=== PATIENT | female | born 1995 | race Caucasian/White ===

== ENCOUNTER 2017-10-08 17:54 | Emergency (ER) | payer BC, SELFPAY ==
[2017-10-08 17:58] VITALS: BP 121/76; PULSE 101; RESP 18; TEMP 36.6; O2SAT 98
--- NOTE | 2017-10-08 18:22 | ED.GENADUL_ITS ---
Disposition Clinical Impression: Nausea & vomiting, Vaginal discharge Disposition: HOME Condition: Fair Instructions: Acute Nausea and Vomiting (ED) Additional Instructions: Continue to encourage hydration. Zofran as prescribed to help with nausea. I have asked our customer care representative to help facilitate follow up with primary care. Please also follow [facility] with [facility] for [facility]. Testing here today was normal. We will contact you with any out standing positive test results, it will take 5 business days to get these results back. If you develop increased abdominal pain, fevers/chills, inability to hydrate or other new/worsening symptoms please seek care urgently once again. Prescriptions: Ondansetron ODT [Zofran Odt] 4 mg PO TID PRN #12 tabef PRN Reason: Nausea Referrals: Primary Care Provider [Outside] Medical Decision Making - Lab Data Laboratory Tests 10/08/17 10/08/17 10/08/17 18:05 18:25 18:25 WBC 9.05 RBC 4.52 Hgb 13.3 Hct 40.0 MCV 88.5 MCH 29.4 MCHC 33.3 RDW 12.4 Plt Count 274 MPV 10.0 Immature Gran % 0.2 Neutrophils % 63.9 Lymphocytes % 26.7 Monocytes % 7.3 Eosinophils % 1.7 Basophils % 0.2 Absolute Neutrophils 5.78 Absolute Lymphocytes 2.42 Absolute Monocytes 0.66 Absolute Eosinophils 0.15 Absolute Basophils 0.02 Sodium 139 Potassium 3.5 Chloride 103 Carbon Dioxide 31.4 Anion Gap 4.6 BUN 10 Creatinine 0.92 Estimated GFR/1.73 m2 >= 60.00 Glucose 85 Calcium 8.5 Magnesium 1.7 L Total Bilirubin 0.3 AST 24 ALT 37 Alkaline Phosphatase 99 Troponin I < 0.02 Total Protein 8.2 Albumin 4.0 Urine Color Yellow Urine Clarity Sl cloudy Urine pH 5.5 Ur Specific [place] >= 1.030 H Urine Protein Negative Urine Ketones Trace H Urine Blood Trace-intact H Urine Nitrite Negative Urine Bilirubin Negative Urine Urobilinogen 0.2 Ur Leukocyte Esterase Negative Urine RBC 3-5 H Urine WBC 0-2 Ur Epithelial Cells Many Urine Crystals Negative Urine Bacteria Few Urine Casts Negative Urine Mucus Heavy Ur Culture Indicated? No Urine Glucose Negative Results reviewed for labs ordered during visit: Yes - Medical Decision Making Patient presents today with chief complaint of nausea vomiting and diffuse abdominal discomfort. Describes abdominal discomfort as cramping. Pain does not radiate. Has not vomited today, last vomited last night. No fevers/chills. On exam, patient appears dehydrated. She is noted to be slightly tachycardic at 101. Afebrile, nontoxic appearing. Diffuse abdominal pain, worse in the RLQ and epigastric region. No peritoneal findings, pain seems to be minimal on exam. She is endorsing mild vaginal discharge. Has IUD in place. Will need to switch rooms to be able to preform a vaginal exam. She is endorsing nausea currently. Will hydrate the patient, obtain laboratory evaluation and preform vaginal exam. Patient will be given Zofran IV to help with nausea. At this time, hold off on imaging. Pain is fairly diffuse, overall her symptoms are improving, no exam findings to suggest surgical pathology is noted.. Do not feel that imaging is warranted at this time. UPT negative Vaginal exam preformed, please see physical exam. Yellow discharge noted. No cervical motion tenderness. Negative chandelier sign. No adenexal tenderness. IUD strings visualized. Labs without significant abnormality. No leukocytosis. Vag path screen pending. Patient reports that nausea has improved after IV Zofran. Currently receiving IV hydration. Ana Maria, Gardnerella and trichomonas were all negative. Discussed findings with the patient. She is feeling much improved after hydration and IV Zofran. I encouraged hydration. She will be prescribed ODT Zofran to help with nausea and vomiting. She does not have a local primary care , I have asked her care according to help facilitate follow-up with primary care. We discussed new/worsening symptoms when to seek care urgently once again. Regard to the vaginal discharge, the chlamydia and gonorrhea testing is still pending. Will contact her with any positive results. [facility] for all [facility]ologic needs, advised that she follow- up with them regarding her vaginal discharge. All of her questions and concerns were addressed and she is in agreement with this plan. History of Present Illness - General Chief complaint: Nausea/Vomit/Diar Time Seen by Provider: 10/08/17 17:59 Source: patient, RN notes reviewed Mode of arrival: ambulatory Limitations: no limitations - History of Present Illness Initial comments: Patient is a 22-year-old female, otherwise healthy, presenting today with chief complaint of nausea and vomiting. She is accompanied by significant other. She reports that symptoms began 3 days ago. Reports that symptoms overall have improved today. Has not vomited since last night. However, she has very poor p.o. intake today as well secondary to continued nausea. Denies any hematemesis. Denies any fevers or chills. Denies any change in bowel or bladder habits. Denies any dysuria. Patient is endorsing increased vaginal discharge. Reports that she often has a scant amount of vaginal discharge but that this is increased from her baseline. States it has been yellow. No foul odor. She denies any itching or dyspareunia. Reports that she has been having fairly diffuse abdominal discomfort. Nausea and abdominal discomfort is worse when she tries to eat. States that she has been able to have sips of water today. No previous abdominal surgeries. Patient has IUD in place. Reports she was tested for STD prior to IUD insertion one year ago, was found to be negative per her report. Current significant other is new sexual partner since being tested. - Related Data Iud 10/08/17 Ondansetron ODT [Zofran Odt] 4 mg PO TID PRN #12 tabef 10/08/17 Allergies Allergy/AdvReac Type Severity Reaction Status Date / Time Sulfa (Sulfonamide Allergy Unverified 10/08/17 18:04 Antibiotics) Review of Systems Constitutional: no symptoms reported Respiratory: no symptoms reported Cardiovascular: denies: chest pain Gastrointestinal: as per HPI Genitourinary: as per HPI Musculoskeletal: denies: back pain Skin: denies: rash, lesions Neurological: denies: headache Past Medical History - Past Medical History Medical history: no medical history Surgical history: no surgical history General Exam - General Limitations: no limitations General appearance: alert, in no apparent distress - Head Head exam: Present: atraumatic - Eye Eye exam: Present: normal apperance - ENT ENT exam: Present: mucous membranes dry - Respiratory Respiratory exam: Present: normal lung sounds bilaterally. Absent: respiratory distress - Cardiovascular Cardiovascular Exam: Present: regular rate, normal rhythm, normal heart sounds - GI/Abdominal GI/Abdominal exam: Present: soft, tenderness (diffuse tenderness, worse in the RLQ and epigastric area.), diminished bowel sounds. Absent: distended, guarding , rebound, rigid - Rectal Rectal exam: Present: deferred - External exam: Present: normal external exam. Absent: erythema, swelling, lesions, lacerations, eccymosis Speculum exam: Present: vaginal discharge (small amount of yellow discharge. No foul odor. Seen in vaginal vault. IUD strings are visualized. No cervical discharge noted.). Absent: erythema, cervical discharge, vaginal bleeding, foreign body, tissue, laceration By manual exam: Present: normal by manual exam. Absent: cervical motion tendernes, adnexal tenderness, adnexal mass, uterine enlargement, uterine tenderness - Back Exam Back exam: Present: normal inspection. Absent: CVA tenderness (R), CVA tenderness (L) - Neurological Exam Neurological exam: Present: alert, normal gait - Psychiatric Psychiatric exam: Present: normal affect, normal mood - Skin Skin exam: Present: warm, dry, normal color Course Vital Signs - 24 hr 10/08/17 17:58 Temperature 36.6 C Pulse 101 H Respiratory 18 Rate Blood Pressure 121/76 Pulse Oximetry 98
[2017-10-08] MEDS: Normal Saline 1,000 ML 1000 ML IV (18:25)
[2017-10-08] MEDS: Normal Saline Flush 10 ML SYR IVP (18:25)
[2017-10-08] MEDS: Ondansetron 4 MG/2 ML VIAL IVP (18:33)
[2017-10-08 18:38] LABS: Abs Immature Grans 0.02 k/cumm (0.0-0.09); Absolute Basophil Count 0.02 k/cumm (0.0-0.2); Absolute Eosinophil Count 0.15 k/cumm (0.0-0.7); Absolute Lymphocyte Count 2.42 k/cumm (1.2-3.4); Absolute Monocyte Count 0.66 k/cumm (0.11-0.7); Absolute Neutrophil Count 5.78 k/cumm (1.2-6.7); Basophils % 0.2; Eosinophils % 1.7; HGB 13.3 g/dL (12.0-15.5); Immature Grans % 0.2; Lymphocytes % 26.7; Mean Corp. HGB Concentration 33.3 g/dL (32.0-36.0); Mean Corpuscular Hemoglobin 29.4 pg (27.0-33.0); Mean Corpuscular Volume 88.5 fL (80-95); Monocytes % 7.3; Neutrophils % 63.9; Platelet Count 274 x1000/uL (130-400); RBC 4.52 m/cumm (4.00-5.20); RBC Distribution Width 12.4 % (11.7-14.6); White Blood Cell Count 9.05 k/cumm (4.4-10.8)
[2017-10-08 18:40] LABS: Bilirubin Negative (Negative); Blood Trace-intact (Negative); Clarity Sl Cloudy; Glucose Negative (Negative); Ketones Trace mg/dL (Negative); Leukocyte Esterase Negative (Negative); Nitrite Negative (Negative); Specific Gravity >= 1.030 (1.005-1.025); Urobilinogen 0.2 EU/dL (Up TO 0.2); pH 5.5 (5-8)
[2017-10-08 18:48] LABS: Bacteria Few HPF (Negative); C & S Indicated? No; Casts Negative LPF (Negative); Crystals Negative HPF (Negative); Epithelial Cells Many HPF (Negative); Mucus Heavy (Negative); WBC 0-2 HPF (0-5)
[2017-10-08 18:57] LABS: ALT 37 U/L (12-78); AST 24 U/L (15-37); Alkaline Phosphatase 99 U/L (46-116); Anion Gap 4.6 mmol/L (3-11); BUN 10 mg/dL (7-18); Bilirubin, Total 0.3 mg/dL (0.2-1.0); CO2 31.4 mmol/L (21.0-32.0); CREATININE 0.92 mg/dL (0.55-1.02); Calcium 8.5 mg/dL (8.5-10.1); Chloride 103 mmol/L (98-107); Glucose 85 mg/dL (70-100); Magnesium 1.7 mg/dL (1.8-2.4); Potassium 3.5 mmol/L (3.5-5.1); Sodium 139 mmol/L (136-145); Total Protein 8.2 g/dL (6.4-8.2); Troponin I < 0.02 ng/mL (0.00-0.06)
[2017-10-08 19:37] VITALS: BP 116/72; PULSE 88; RESP 14; TEMP 36.9; O2SAT 97
[2017-10-08 20:30] VITALS: BP 128/75; PULSE 80; RESP 16; TEMP 37; O2SAT 99
[2017-10-08 20:36] VITALS: BP 128/75; PULSE 80; RESP 16; TEMP 37; O2SAT 99
[2017-10-08] MEDS: Ondansetron O.D.T. 4 MG TABEF 12 MG PO (20:40)
--- NOTE | 2017-10-09 10:34 | PDOC.ERCMPRO ---
Care Management Progress Note 10/09-Beatrice CUNNINGHAM requested assistance with a PCP f/u in 7-10 days for nausea and vomiting. Chart states that Minda does not have a local PCP. This CM called Minda and left voice message for her to return my call to discuss if she needs a local PCP or if she is staying with the one she already has. Currently waiting for Minda to call back.
[2017-10-10 12:55] LABS: Chlamydia Result Negative; GC Result Negative; Specimen Description CERVIX
== END 2017-10-08 20:46 | disposition home or self-care (01) ==
PROVIDERS: Physician Assistant; Emergency Provider Student in an Organized Health Care Education/Training Program
DX: R11.2 Nausea with vomiting, unspecified (principal); N89.8 Other specified noninflammatory disorders of vagina; R10.31 Right lower quadrant pain; R10.13 Epigastric pain
CPT/HCPCS: 36415; 80053; 81025; 87491; 87591; 96361; 96374; 99284; 81003; 81015; 83735; 84484; 85025; 87480; 87510; 87660; J2405

== ENCOUNTER 2018-02-16 08:30 | Emergency (ER) | payer BC, SELFPAY ==
[2018-02-16 08:42] VITALS: BP 157/93; PULSE 107; RESP 16; TEMP 37; O2SAT 98
--- NOTE | 2018-02-16 08:54 | W.ED.GENAD ---
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 It is extremely important that you make an appointment to be seen by your diamond picker within the next 1-2 weeks in follow-up for this visit. Referrals: Ambika Zhang MD [ [facility]YSICIAN] - Discharge Data Discharge Date/Time-TO BE ENTERED AT DEPARTURE: 02/16/18 11:31 Medical Decision Making Minda Packer 22-year-old woman with out history of major medical problems renting to the emergency department with new vaginal bleeding after having IUD placed 18 months ago and no bleeding since placement. On exam patient is very well and nontoxic appearing. Pelvic exam shows IUD strings in place, friable, mildly erythematous cervix with small amount of white/yellow discharge. No abdominal tenderness to palpation, no cervical tenderness palpation, no adnexal or uterine TTP on bimanual exam. Rectal exam shows hemorrhoid without bleeding. Concern for possible IUD migration into unterine tissue and versus other gynecologic pathology. Plan for pelvic ultrasound. Exam/history not consistent with ovarian torsion, PID, acute life-threatening hemorrhage/anemia. UA and urine preg negative. We will send cervical cultures. Without other symptoms we will hold antibiotics for cervicitis at this time. Pelvic US unremarkable per radiology. Patient wants to have IUD removed, as she is generally unhappy with it. Plan for referral to gynecology. Lengthy discussion with patient regarding return to emergency department precautions and importance of outpatient follow-up with her diamond picker. She verbalizes understanding of and is amenable to the plan. Medical Records Medical records reviewed: Yes I reviewed the patient's medical records. Imaging Data Radiologic Study: Radiologist's impression: PELVIC ULTRASOUND: Transabdominal and transvaginal examination was performed. There are no priors for comparison. The uterus measures 6.8 cm. long by 2.7 cm. AP by 4.4 cm. transverse. The endometrial stripe is within normal limits at .4 cm. There is a small amount of fluid in the endometrial canal. There is an intrauterine device in good position within the endometrial canal. No myometrial mass is present. The right ovary measures 3.3 by 2.5 by 2.8 cm. The left ovary measures 3 by 2.2 by 3.0 cm. Small follicular cysts are seen bilaterally. There is normal blood flow to the ovaries. No evidence of torsion is seen.. No significant free pelvic fluid is present. IMPRESSION: Intrauterine device in good position. Otherwise negative pelvic ultrasound. Lab Data Lab results reviewed: Yes I reviewed the patient's lab results. Laboratory Tests Range/Units 02/16/18 09:10 Urine Color (Yellow) Yellow Urine Clarity Sl cloudy Urine pH (5-8) 6.0 Ur Specific [place] (1.005-1.025) 1.020 Urine Protein (Negative) mg/dL Negative Urine Ketones (Negative) mg/dL Trace H Urine Blood (Negative) Trace-intact H Urine Nitrite (Negative) Negative Urine Bilirubin (Negative) Negative Urine Urobilinogen (Up TO 0.2) EU/dL 0.2 Ur Leukocyte Esterase (Negative) Negative Urine RBC (0-2) 5-10 H Urine WBC (0-5) HPF 10-20 Ur Epithelial Cells (Negative) HPF Many Urine Crystals (Negative) HPF Negative Urine Bacteria (Negative) HPF Many Urine Casts (Negative) LPF Negative Urine Mucus (Negative) Negative Urine Other (Negative) Ur Culture Indicated? No/sq. contamination Urine Glucose (Negative) mg/dL Negative HPI General Mode of arrival: ambulatory. Date/Time Provider Initiated Documentation: 02/16/18 08:49. Limitations to Documentation: no limitations. Information obtained by: patient, RN notes reviewed and old records reviewed. HPI Narrative: Aurora Packer is a 22-year-old woman with out history of major medical problems presenting to the emergency department vaginal bleeding. Patient reports that she had an IUD placed approximately 18 months ago. She has had essentially no vaginal bleeding since the IUD was placed. Patient reports that she woke up this morning and got out of bed, and notcied blood running down her legs. She did not see any significant clots. Color was dark red. Pt reports that bleeding was vaginal and not rectal. Patient reports that she has been having intermittent lower abdominal cramping over the past month, but no change in her pain over the past few days. She reports no other pain and no other symptoms. No nausea/vomiting/diarrhea, no dysuria, no shortness of breath/cough, no skin rash. No recent illnesses. 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 ZACH: 3 Review of Systems Review of Systems Constitutional: denies fevers Eyes: denies eye pain ENT: denies facial pain, dental pain, sore throat Cardiovascular: denies chest pain, edema Respiratory: denies SOB, cough GI: denies vomiting, diarrhea, report mild lower abd cramping, none currently : denies flank pain MSK: denies back pain, neck pain, arthralgias, myalgias Skin: denies rash Neuro: denies headaches, lightheadedness, weakness PFSH Social History Smoking/Tobacco Use Status: Never Exam Narrative Exam Narrative: Constitutional: well and [id number], pleasant, conversing normally HENT: head atraumatic, normocephalic normal inspection, mucous membranes moist Eyes: conjunctiva normal, sclera normal, pupils 3mm b/l Neck: no stridor, normal ROM, trachea midline Chest: normal inspection Resp: normal work of breathing, LCTAB Cardio: normal rate, normal rhythm, no murmur appreciated GI: abdomen soft, non-tender, non-distended Back: normal inspection, no rash Skin: warm, dry, normal color, no rash Neuro: alert, not altered, grossly non-focal, normal tone Ext: no edema Psych: normal mood, normal affect, normal behavior Course Vital Signs Temperature 37 C 02/16/18 08:42 Pulse 107 H 02/16/18 08:42 Respiratory Rate 16 02/16/18 08:42 Blood Pressure 157/93 H 02/16/18 08:42 Pulse Oximetry 98 02/16/18 08:42 Temperature 37 C 02/16/18 08:42 Temperature Source Skin 02/16/18 08:42 Pulse 107 H 02/16/18 08:42 Respiratory Rate 16 02/16/18 08:42 Respiratory Effort Non-Labored 02/16/18 08:42 Blood Pressure 157/93 H 02/16/18 08:42 Blood Pressure Position Sitting 02/16/18 08:42 Pulse Oximetry 98 02/16/18 08:42 Oxygen Delivery Method Room Air 02/16/18 08:42 Oxygen Flow Rate 0 02/16/18 08:42 Pain Level 0 02/16/18 08:42
[2018-02-16 09:16] LABS: Bilirubin Negative (Negative); Blood Trace-intact (Negative); Clarity Sl Cloudy; Glucose Negative (Negative); Ketones Trace mg/dL (Negative); Leukocyte Esterase Negative (Negative); Nitrite Negative (Negative); Urobilinogen 0.2 EU/dL (Up TO 0.2)
--- NOTE | 2018-02-16 09:21 | DI.US_ITS ---
SYMPTOM/DIAGNOSIS: NEW VAGINAL BLEEDING, IUD, ? IUD MIGRATION PELVIC ULTRASOUND: Transabdominal and transvaginal examination was performed. There are no priors for comparison. The uterus measures 6.8 cm. long by 2.7 cm. AP by 4.4 cm. transverse. The endometrial stripe is within normal limits at .4 cm. There is a small amount of fluid in the endometrial canal. There is an intrauterine device in good position within the endometrial canal. No myometrial mass is present. The right ovary measures 3.3 by 2.5 by 2.8 cm. The left ovary measures 3 by 2.2 by 3.0 cm. Small follicular cysts are seen bilaterally. There is normal blood flow to the ovaries. No evidence of torsion is seen.. No significant free pelvic fluid is present. IMPRESSION: Intrauterine device in good position. Otherwise negative pelvic ultrasound.
[2018-02-16 09:30] LABS: Epithelial Cells Many HPF (Negative)
[2018-02-16 09:31] LABS: Bacteria Many HPF (Negative); C & S Indicated? No/Sq. Contamination; Casts Negative LPF (Negative); Crystals Negative HPF (Negative); Mucus Negative (Negative)
[2018-02-17 14:51] LABS: Chlamydia Result Negative; GC Result Negative; Specimen Description CERVIX
== END 2018-02-16 11:31 | disposition home or self-care (01) ==
PROVIDERS: Emergency Provider Student in an Organized Health Care Education/Training Program
DX: N93.8 Other specified abnormal uterine and vaginal bleeding (principal); Z97.5 Presence of (intrauterine) contraceptive device
CPT/HCPCS: 81025; 87491; 87591; 99284; 76830; 76856; 81003; 81015

== ENCOUNTER 2018-02-26 15:58 | Outpatient (CLI) | payer BC, SELFPAY ==
[2018-02-26 17:26] LABS: TSH (W/Ref FT4) 2.36 uIU/mL (0.358-3.74)
== END 2018-02-26 16:18 ==
PROVIDERS: Visit Provider Nurse Practitioner Women's Health
DX: N93.9 Abnormal uterine and vaginal bleeding, unspecified (principal); R63.5 Abnormal weight gain
CPT/HCPCS: 36415; 84443

== ENCOUNTER 2019-02-05 17:24 | Emergency (ER) | payer BC, SELFPAY ==
[2019-02-05 17:32] VITALS: BP 143/89; PULSE 104; RESP 20; TEMP 36.7; O2SAT 99
--- NOTE | 2019-02-05 17:47 | ED.GENADUL_ITS ---
Discharge Plan Disposition Patient Disposition: HOME Condition: Improving Discharge Details Chief Complaint: RespSymp Clinical Impression: Bronchitis Primary Care Provider: Radha,Local ED Provider: Zurdo Hardy Home Meds and New Rx's Prescriptions: New azithromycin 250 mg tablet 250 mg PO DAILY 4 Days Qty: 4 RF: 0 Discharge Instructions Instructions: Acute Bronchitis (ED) Additional Instructions: Home to rest today. Small, frequent sips of fluids to maintain hydration. May use Tylenol 650 mg every 6 hours as needed for aches, pains, fever. You may also use ibuprofen 600 mg every 8 hours. May use the provided Robitussin 1 teaspoon every 6 hours as needed for cough. Do not use with alcohol. Return for difficulty breathing, persistent high fevers, or any other acute concern Medical Decision Making 23-year-old female presents from home with 2 days of cough, congestion, body ache and mild headache. She is temp 36.7, borderline tachycardia at rest and triage, but otherwise normal vital signs. Differential diagnosis includes viral syndrome, bronchitis, pneumonia. Influenza screening obtained and negative. Chest x-ray with prominent, indistinct pulmonary vasculature that may be atypical infection, no focal consolidation. See formal report. HPI General Mode of arrival: ambulatory . Date/Time Provider Initiated Documentation: 02/05/19 17:28 . Limitations to Documentation: no limitations . Information obtained by: patient . History of Present Illness 23 year old F presents to the emergency department with the chief complaint of 2 days cough, fever, chills, body ache, mild headache., described as moderate, and is localized to the chest. Patient reports no radiation. Patient started e xperiencing this day(s) and it has been constant. No relieving factors improve symptom(s), No exacerbating factors reported . Patient notes cough, fever/chills, headaches, loss of appetite and malaise; denies nausea/vomiting, shortness of breath and syncope. Patient did receive the following treatments prior to arrival, NSAID Related Data Home Medications Medication Instructions Recorded Confirmed azithromycin 250 mg PO DAILY 4 Days #4 tab 02/05/19 Previous Rx's Medication Instructions Recorded azithromycin 250 mg PO DAILY 4 Days #4 tab 02/05/19 Allergies Allergy/AdvReac Type Severity Reaction Status Date / Time Sulfa (Sulfonamide Allergy Unverified 02/05/19 17:37 Antibiotics) General Stated Complaint: RespSymp ZACH: 3 Review of Systems Narrative: 6 systems reviewed and otherwise negative. PFSH Social History Smoking/Tobacco Use Status: Never Drug use: Occasionally Do you feel safe in your relationship?: Yes Female Reproductive History Menstrual Age of Menarche: 8 control method: progestin IUCD History History 0 Para Hx # Term Pregnancies Multiple births Hx # Pregnancies Ectopic pregnancies AB induced Hx Number of Living Children AB spontaneous Exam Narrative Exam Narrative: GEN: awake, alert, oriented 3. Pleasant, well groomed, interactive. HEAD: Normocephalic, atraumatic ENT: Mucous membranes moist, oropharynx unremarkable, External ear exam unremarkable EYES: PERRL, EOMI NECK: Full ROM, no FLAQUITA, no menigismus CHEST/RESP: Cough noted, nontender, clear to auscultation bilateral, no wheeze/rhonchi/rales CARDIOVASCULAR: RRR, borderline tachycardia, no murmur, rub alessandra. 2+ Rad pulse bilateral ABDOMEN: Soft, nontender, no mass. +Bowel sounds EXT: Full ROM, no edema, no rash Neuro: Grossly normal neurologic exam, conversant, interactive. Psych: Speech fluent, thoughts congruent, affect normal Course Vital Signs Vital signs: Vital Signs Temperature 36.7 C 02/05/19 17:32 Pulse 104 H 02/05/19 17:32 Respiratory Rate 20 02/05/19 17:32 Blood Pressure 143/89 H 02/05/19 17:32 Pulse Oximetry 99 02/05/19 17:32 Temperature 36.7 C 02/05/19 17:32 Temperature Source Skin 02/05/19 17:32 Pulse 104 H 02/05/19 17:32 Respiratory Rate 20 02/05/19 17:32 Respiratory Effort 02/05/19 17:36 Blood Pressure 143/89 H 02/05/19 17:32 Blood Pressure Position Sitting 02/05/19 17:32 Pulse Oximetry 99 02/05/19 17:32 Oxygen Delivery Method Room Air 02/05/19 17:32 Oxygen Flow Rate 0 02/05/19 17:32 Pain Level 5 02/05/19 17:32
[2019-02-05] MEDS: Acetaminophen 500 MG TAB 1000 MG PO (17:52)
--- NOTE | 2019-02-05 18:11 | NUR.NOTE ---
urine tested for , negative
--- NOTE | 2019-02-05 18:24 | DI.RAD_ITS ---
EXAM: XR CHEST 2V PA LATERAL INDICATION: Cough and fever. COMPARISON: No exams were available for comparison TECHNIQUE: 2D digital imaging was performed. FINDINGS: The heart size is within normal limits. No focal consolidating infiltrates are seen. No pleural eff usions or pneumothoraces are identified. There is crowding of the pulmonary vasculature, likely refl ecting poor inspiration. Bones are intact. IMPRESSION: No focal consolidating infiltrates.
--- NOTE | 2019-02-05 18:39 | DI.VRAD_ITS ---
PROCEDURE INFORMATION: Exam: XR Chest, 2 Views Exam date and time: 02/05/2019 6:27 PM Age: 23 years old Clinical indication: Other: Cough and fever TECHNIQUE: Imaging protocol: XR of the chest Views: 2 views. COMPARISON: No relevant prior studies available. FINDINGS: Lungs: Low lung volumes. Prominent, indistinct pulmonary vasculature. No focal consolidation. Pleural space: Unremarkable. No pleural effusion. No pneumothorax. Heart/Mediastinum: Unremarkable. No cardiomegaly. Bones/joints: Unremarkable. IMPRESSION: Prominent, indistinct pulmonary vasculature may be accentuated by low lung volumes though atypical infection can have a similar appearance in the setting of cough and fever. No focal consolidation. Dictated and Authenticated by: Jose Pelayo MD. Ordering:KENDRICK Renner MD
[2019-02-05] MEDS: Azithromycin 250 MG TAB 500 MG PO (18:57)
[2019-02-05] MEDS: guaiFENesin 200 MG/10 ML CUP (18:58)
== END 2019-02-05 19:01 | disposition home or self-care (01) ==
PROVIDERS: Emergency Provider Emergency Medicine
DX: J20.9 Acute bronchitis, unspecified (principal); R51 Headache
CPT/HCPCS: 81025; 87449; 99283; 71046; J3490

== ENCOUNTER 2019-08-02 14:01 | Outpatient (REF) | payer BC, SELFPAY ==
--- NOTE | 2019-08-02 13:10 | PAPFT_PTH ---
PATIENT: Minda Packer LOC: [facility] U#:[id number] AGE/SX: 23/F ROOM: RE08/02/[address]: Manuela Cortes NP : 1995 BED: DIS: 08/02/2019 SPEC #: [id number] RECD: 08/02/19 16:51 STATUS: CHRISTOPHER SOUZA #: [id number] KRANTHI: 08/02/19 13:[address]: Manuela Cortes NP DEPT: [facility] Cytology RECD BY: Karli Roque ENTERED: 08/02/19 16:51 SP TYPE: PAPFT ASHLEY DR: Radha Local Tissues: 1 - CX/ENDOCX FOR PAP SMEARS Procedures: PAP THIN PREP/[facility] Screening Comments: [id number]
== END 2019-08-02 14:21 ==
LOC: LBN 14:01
PROVIDERS: Visit Provider Nurse Practitioner Women's Health
DX: Z12.4 Encounter for screening for malignant neoplasm of cervix (principal)
CPT/HCPCS: 88142

== ENCOUNTER 2020-09-26 06:35 | Emergency (ER) | payer OTHER, SELFPAY ==
[2020-09-26 06:44] VITALS: BP 124/79; PULSE 77; RESP 18; TEMP 36.2; O2SAT 98
--- NOTE | 2020-09-26 06:54 | ED.GENADUL_ITS ---
Discharge Plan Disposition Patient Disposition: HOME Condition: Good Discharge Details Clinical Impression: Abdominal pain, left lower quadrant Primary Care Provider: Wendy Kamara ED Provider: Steven Cortes Home Meds and New Rx's Prescriptions: Continued multivitamin [Daily Multi-Vitamin] Tablet 1 tab PO DAILY RF: 0 Discharge Instructions Additional Instructions: Your cat scan showed that you have a small amount of free fluid likely from a small ruptured ovarian cyst. You also have nonobstructing kidney stones follow up with your primary care provider within 1-2 weeks if you feel more ill, have severe worsening pain or persistent vomit return to the emergency department Medical Decision Making <Ambrose Anguiano DO - Last Filed: 09/26/20 07:09> 25-year-old female with no significant past medical history who presents today for evaluation of left lower quadrant pain. Patient states that the pain has been present on and off for the last 3 months, however over the last 2 weeks it is pain constant, and then over the last 2 days it is been notably pronounced in the left lower quadrant. She admits to an episode of vomiting but did associated diarrhea. She denies any correlation with her menstrual period. She denies any urinary complaints, or association with food. Pain is made worse when she sits upright, improved when she lies down or stands. She does have had a history of kidney stones in the past but states that this feels different. No other complaints at this time. No other modifying factors. Exam demonstrates tenderness in the left lower quadrant, no other abnormalities. Differential includes ovarian cyst, diverticulitis, fibroid. We'll get a CT scan, treat patient's pain with Toradol, gently rehydrate monitor closely and reassess. The patient will be signed out to my colleague Dr. Cortes. Please refer to his documentation. <Steven Cortes MD - Last Filed: 09/26/20 08:24> Pt signed out to me pending results of CT. CT shows small amount of free fluid and likely recently ruptured right ovarian cyst and nonobstructing renal calculi. She is stable in no distress with minimal tenderness in the llq. She feels well enough for discharge and is stable for d/c. She will f/u with her pcp and return precautions given Imaging Data Radiologic Study: Attestation: I personally reviewed and interpreted this imaging study as follows: Imaging: CT Scan Radiologist's impression: MPRESSION: Small quantity of free fluid in the pelvis recently ruptured ovarian cyst not excluded, please correlate clinically. Incidental bilateral nonobstructing renal calculi note HPI <Ambrose Anguiano DO - Last Filed: 09/26/20 07:09> General Date/Time Provider Initiated Documentation: 09/26/20 06:36 . HPI Narrative: 25-year-old female with no significant past medical history who presents today for evaluation of left lower quadrant pain. Patient states that the pain has been present on and off for the last 3 months, however over the last 2 weeks it is pain constant, and then over the last 2 days it is been notably pronounced in the left lower quadrant. She admits to an episode of vomiting but did associated diarrhea. She denies any correlation with her menstrual period. She denies any urinary complaints, or association with food. Pain is made worse when she sits upright, improved when she lies down or stands. She does have had a history of kidney stones in the past but states that this feels different. No other complaints at this time. No other modifying factors. Related Data Home Medications Medication Instructions Recorded Confirmed multivitamin 1 tab PO DAILY 08/02/19 09/26/20 Allergies Allergy/AdvReac Type Severity Reaction Status Date / Time Sulfa (Sulfonamide Allergy Unverified 09/26/20 06:51 Antibiotics) General Stated Complaint: Abd Prob ZACH: 3 Review of Systems <Ambrose Anguiano DO - Last Filed: 09/26/20 07:09> All systems reviewed & are unremarkable except as noted in HPI and below PFSH <Ambrose Anguiano DO - Last Filed: 09/26/20 07:09> Surgical History H/O adenoidectomy Social History Smoking/Tobacco Use Status: Never Smoking risk assessment performed?: Yes Alcohol Intake: current Alcohol Intake frequency: a few times a week Drug use: Daily Substance use type: marijuana Do you feel safe in your relationship?: Yes Female Reproductive History Menstrual Age of Menarche: 8 control method: condoms History History 0 Para Hx # Term Pregnancies Multiple births Hx # Pregnancies Ectopic pregnancies AB induced Hx Number of Living Children AB spontaneous Exam <Ambrose Mendez DO Silvio - Last Filed: 09/26/20 07:09> Narrative Exam Narrative: 1.Const: Well-nourished, Well-developed, appearing stated age 2.Eyes: PERRL, no conjunctival injection, and symmetrical lids. 3.ENT: Atraumatic external nose and ears. Moist MM. Neck: Symmetric, trachea midline, No thyromegaly. 4.CVS: +S1/S2, No murmurs or gallops. Peripheral pulses 2+ and equal in all extremities. Brisk capillary refill in all extremities. 5.RESP: Unlabored respiratory effort. Clear to auscultation bilaterally. No wheezes rales or rhonchi 6.GI: Soft, nondistended, mild tenderness in the left lower quadrant, and no pain at McBurney's point. No flank or CVA tenderness. Positive heel strike test on the left but not the right. 7.MSK: Normocephalic/Atraumatic, Extremities w/o deformity or ttp No cyanosis or clubbing, Normal movement of all extremities 8.Skin: Warm, Dry. No rashes or lesions. 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 Sensation grossly intact, no focal neurologic deficits. 10.Psych: (AAO) x3. Appropriate mood and affect Course <Ambrose Anguiano DO - Last Filed: 09/26/20 07:09> Vital Signs Vital signs: Vital Signs Temperature 36.2 C L 09/26/20 06:44 Pulse 77 09/26/20 06:44 Respiratory Rate 18 09/26/20 06:44 Blood Pressure 124/79 09/26/20 06:44 Pulse Oximetry 98 09/26/20 06:44 Temperature 36.2 C L 09/26/20 06:44 Temperature Source Temporal Artery Scan 09/26/20 06:44 Pulse 77 09/26/20 06:44 Respiratory Rate 18 09/26/20 06:44 Respiratory Effort Non-Labored 09/26/20 06:49 Blood Pressure 124/79 09/26/20 06:44 Blood Pressure Position Sitting 09/26/20 06:44 Pulse Oximetry 98 09/26/20 06:44 Oxygen Delivery Method Room Air 09/26/20 06:44 Oxygen Flow Rate 0 09/26/20 06:44 Pain Level 5 09/26/20 06:44 Sign Out <Ambrose Anguiano DO - Last Filed: 09/26/20 07:09> Sign Out Data: Sign Out Comment: Left lower quadrant abdominal pain, follow-up on images, labs. Last updated by Ambrose Anguiano DO at 09/26/20 07:09
[2020-09-26] MEDS: Normal Saline 1,000 ML 1000 ML IV (06:59)
[2020-09-26] MEDS: Ketorolac 15 MG/ML VIAL IVP (07:00)
[2020-09-26 07:02] LABS: Abs Immature Grans 0.03 10^3/uL (0.0-0.06); Absolute Basophil Count 0.04 10^3/uL (0.0-0.2); Absolute Eosinophil Count 0.19 10^3/uL (0.0-0.7); Absolute Monocyte Count 0.59 10^3/uL (0.1-0.8); Absolute Neutrophil Count 4.24 10^3/uL (1.2-6.7); Basophils % 0.5; Eosinophils % 2.6; HCT 39.8 % (36.0-46.0); HGB 13.1 g/dL (11.2-15.7); Immature Grans % 0.4; Lactate 0.9 mmol/L (0.6-1.4); Lymphocytes % 30.2; MCH 30.3 pg (27.0-33.0); MCHC 32.9 % (32.0-36.0); MCV 91.9 fL (80-95); MPV 9.5 fL (8.0-11.0); Monocytes % 8.1; Neutrophils % 58.2; Nucleated RBC 0 %; Platelet Count 277 10^3/uL (130-400); RBC 4.33 10^6/uL (3.93-5.22); RDW 12.1 % (11.7-14.6); RDW-SD 41.2 fL; WBC 7.29 10^3/uL (4.4-10.8)
[2020-09-26 07:17] LABS: ALT 22 U/L (14-59); AST 12 U/L (15-37); Albumin 4.2 g/dL (3.4-5.0); Alkaline Phosphatase 66 U/L (46-116); Anion Gap 8.2 mmol/L (3-11); BUN 8 mg/dL (7-18); Bilirubin, Total 0.3 mg/dL (0.2-1.0); CO2 26.8 mmol/L (21.0-32.0); CREATININE 0.7 mg/dL (0.55-1.02); Chloride 106 mmol/L (98-107); Glucose 98 mg/dL (74-106); Potassium 3.9 mmol/L (3.5-5.1); Sodium 141 mmol/L (136-145); Total Protein 7.5 g/dL (6.4-8.2)
[2020-09-26 07:26] LABS: Bilirubin Negative (Negative); Blood Negative (Negative); Clarity Sl Cloudy (Clear); Glucose Negative (Negative); Ketones Negative (Negative); Leukocyte Esterase Negative (Negative); Nitrite Negative (Negative); Urobilinogen 0.2 EU/dL (Up TO 0.2); pH 7.5 (5-8)
[2020-09-26] MEDS: Omnipaque 350 MG/ML 100 ML BTL IJ (07:51)
[2020-09-26] MEDS: Normal Saline - Diluent 50 ML VIAL IV (07:51)
--- NOTE | 2020-09-26 08:04 | DI.CT_ITS ---
Exam(s) CT ABDOMEN PELVIS W EXAM: CT ABDOMEN PELVIS W INDICATION: llq pain 3 months, worsening now. COMPARISON: No exams were available for comparison TECHNIQUE: FINDINGS: CT examination of the abdomen and pelvis was performed with a bolus infusion of 100 cc of Omnipaque 3 50. Images obtained through the lung bases are unremarkable. The liver is unremarkable in appearance. Gallbladder and bile ducts are CT normal. Pancreas appears normal. Spleen is unremarkable in appearance. Adrenals appear normal. The kidneys contain tiny bilateral nonobstructing renal calculi. No renal mass or hydronephrosis. N o ureteral calculus. Urinary bladder unremarkable. Abdominal aorta is of normal diameter and no major vascular abnormality is seen. No abdominal wall hernia. No abdominal or pelvic adenopathy. There is trace free fluid in the pelvis. There is a right ovarian collapsed cyst. No other specific findings. Uterus is grossly unremarkable. Appendix is normal. No evidence of diverticulitis or bowel obstruction. IMPRESSION: Small quantity of free fluid in the pelvis recently ruptured ovarian cyst not excluded, please correl ate clinically. Incidental bilateral nonobstructing renal calculi noted. RADIATION DOSE DELIVERED: 1,015.46mGy.cm Total DLP 1,015.46mGy.cm Total DLP 18.95mGy CTDIvol RADIATION OPTIMIZATION: All CT scans at this facility use at least one of these dose optimization te chniques: automated exposure control; mA and/or kV adjustment per patient size (includes targeted exa ms where dose is matched to clinical indication); or iterative reconstruction.
[2020-09-26 08:21] VITALS: BP 116/76; PULSE 53; RESP 16; TEMP 36.4; O2SAT 100
[2020-09-26 08:32] VITALS: BP 116/76; PULSE 53; RESP 16; TEMP 36.4; O2SAT 100
== END 2020-09-26 08:29 | disposition home or self-care (01) ==
PROVIDERS: Student in an Organized Health Care Education/Training Program; Emergency Provider Emergency Medicine; PCP Family Medicine
DX: R10.32 Left lower quadrant pain (principal); N20.0 Calculus of kidney
CPT/HCPCS: 36415; 80053; 81025; 96361; 96374; 99285; 74177; 81003; 83605; 85025; 99284; J1885; J3490